=== PATIENT | female | born 1960 | race Caucasian/White ===

== ENCOUNTER → 2016-12-23 | Outpatient (CLI) | payer OTHER ==
[~2016-12-23] MED LIST: [UNRECOGNIZED DRUG - CODE] TD; vagifem VG
== END | disposition home or self-care (01) ==
LOC: STAR 10:28
PROVIDERS: ATTEND Orthopaedic Surgery
DX: Z01.818 Encounter for other preprocedural examination (principal); R94.31 Abnormal electrocardiogram [ECG] [EKG]; M17.11 Unilateral primary osteoarthritis, right knee
CPT/HCPCS: 87081; 93005

== ENCOUNTER 2017-01-04 05:23 | Inpatient (IN) | payer OTHER ==
[~2017-01-04] VITALS: Ht 175.3 cm; Wt 107.4 kg
[2017-01-04] MEDS ORDERED: VANCOMYCIN PER PHARMACY MC STA (05:52)
[2017-01-04] MEDS ORDERED: VANCOMYCIN 1,900 MG in SODIUM CHLORIDE 0.9% 250 ML IV ONE (06:00)
[2017-01-04] MEDS ORDERED: LACTATED RINGERS 1,000 ML IV SCH (06:06)
[2017-01-04 06:09] VITALS: BP 129/92
[2017-01-04] MEDS ORDERED: BUPIVACAINE/PF 0.25% ONE (06:26)
[2017-01-04] MEDS ORDERED: SCOPOLAMINE PATCH, 1.5MG PATCH.TD72 TD ONE (06:30)
[2017-01-04] MEDS ORDERED: KETAMINE 10 MG/ML, 20ML ONE (06:31)
[2017-01-04] MEDS ORDERED: FENTANYL PF 250 MCG/5ML ONE (06:32)
[2017-01-04] MEDS ORDERED: MIDAZOLAM 1 MG/ML, 2ML ONE (06:32)
[2017-01-04] MEDS ORDERED: EPHEDRINE 50 MG/ML, 1ML ONE (06:59)
[2017-01-04] MEDS ORDERED: KETOROLAC 30 MG/1 ML ONE (06:59)
[2017-01-04] MEDS ORDERED: CEFAZOLIN 1,000 MG ONE (06:59)
[2017-01-04] MEDS ORDERED: ONDANSETRON 2MG/ML, 2ML ONE (06:59)
[2017-01-04] MEDS ORDERED: DEXAMETHASONE 4 MG/ML, 1ML ONE (06:59)
[2017-01-04] MEDS ORDERED: PROPOFOL 10 MG/ML, 20ML ONE (06:59)
[2017-01-04] MEDS ORDERED: HYDROmorphone 2 MG/ML, 1ML ONE (07:29)
[2017-01-04] MEDS ORDERED: MIDAZOLAM 1 MG/ML, 2ML IV PRN (08:00)
[2017-01-04] MEDS ORDERED: LORazepam 2 MG/ML, 1ML IVPush PRN (08:00)
[2017-01-04] MEDS ORDERED: OXYcodone 5 MG/5 ML ORAL.SOL UDC PO PRN (08:00)
[2017-01-04] MEDS ORDERED: ONDANSETRON 2MG/ML, 2ML IVPush PRN (08:00)
[2017-01-04] MEDS ORDERED: LABETALOL 5MG/ML, 20ML IV PRN (08:00)
[2017-01-04] MEDS ORDERED: PROMETHAZINE 25 MG/ML, 1ML IV PRN (08:00)
[2017-01-04] MEDS ORDERED: FENTANYL PF 100 MCG/2ML IV PRN (08:00)
[2017-01-04] MEDS ORDERED: ALBUTEROL/IPRATROPIUM 2.5MG/0.5MG, 3 ML NPPB PRN (08:00)
[2017-01-04] MEDS ORDERED: HYDROmorphone 1 MG/ML, 1ML IV PRN (08:00)
[2017-01-04] MEDS ORDERED: hydrALAzine 20 MG/ML, 1ML IV PRN (08:00)
[2017-01-04] MEDS ORDERED: MEPERIDINE/PF 25MG/0.5ML IVPush PRN (08:00)
[2017-01-04] MEDS ORDERED: MAGNESIUM HYDROXIDE 8%, 30ML UDC PO PRN (09:30)
[2017-01-04] MEDS ORDERED: ALUMINUM/MAG/SIMETHICONE 30 ML UDC PO PRN (09:30)
[2017-01-04] MEDS ORDERED: ONDANSETRON 4 MG TABLET PO PRN (09:30)
[2017-01-04] MEDS ORDERED: ACETAMINOPHEN 650 MG/20.3 ML UDC PO PRN (09:30)
[2017-01-04] MEDS ORDERED: SENNA/DOCUSATE TABLET PO PRN (09:30)
[2017-01-04] MEDS ORDERED: BISACODYL 10 MG SUPP PR PRN (09:30)
[2017-01-04] MEDS ORDERED: OXYcodone 5 MG/5 ML ORAL.SOL UDC ONE (09:39)
[2017-01-04] MEDS ORDERED: LORazepam 2 MG/ML, 1ML ONE (09:49)
[2017-01-04] MEDS: D5%-0.45NACL+KCL 20MEQ 1,000 ML IV SCH ×2 (12:32→21:00)
[2017-01-04 14:24] VITALS: BP 101/69
[2017-01-04] MEDS: OXYcodone IR 5MG TABLET PO PRN ×3 (15:06→23:26)
[2017-01-04] MEDS: CEFAZOLIN PMX 1GM/50ML 50 ML IVPB SCH ×2 (15:06→23:26)
[2017-01-04] MEDS: DOCUSATE 100 MG CAPSULE PO SCH (19:19)
[2017-01-04 19:32] VITALS: BP 98/61
[2017-01-04 23:28] VITALS: BP 103/65
[2017-01-05] MEDS: OXYcodone IR 5MG TABLET PO PRN ×5 (03:37→20:06)
[2017-01-05 03:40] VITALS: BP 106/70
[2017-01-05] MEDS: D5%-0.45NACL+KCL 20MEQ 1,000 ML IV SCH ×3 (05:00→20:34)
[2017-01-05] MEDS ORDERED: ASPIRIN 325 MG TABLET EC PO ONE (06:00)
[2017-01-05] MEDS: HYDROmorphone 1 MG/ML, 1ML IV PRN ×3 (06:55→14:18)
[2017-01-05 07:39] VITALS: BP 105/69
[2017-01-05] MEDS: MULTIVITAMINS/MINERALS TABLET PO SCH (08:09)
[2017-01-05] MEDS: DOCUSATE 100 MG CAPSULE PO SCH ×2 (08:09→20:06)
[2017-01-05 12:55] VITALS: BP 110/63
[2017-01-05] MEDS ORDERED: KETOROLAC 30 MG/1 ML IVPush PRN (15:00)
[2017-01-05] MEDS ORDERED: KETOROLAC 30 MG/1 ML ONE (15:21)
[2017-01-05] MEDS: KETOROLAC 30 MG/1 ML IVPush SCH ×2 (15:24→21:46)
[2017-01-05] MEDS: OxyconTIN ER 10 MG TAB.ER PO SCH (18:26)
[2017-01-05] MEDS: ASPIRIN 325 MG TABLET EC PO SCH (18:26)
[2017-01-05 18:57] VITALS: BP 119/70
[2017-01-06] MEDS: OXYcodone IR 5MG TABLET PO PRN ×5 (00:55→13:58)
[2017-01-06 01:22] VITALS: BP 117/69
[2017-01-06] MEDS: KETOROLAC 30 MG/1 ML IVPush SCH (04:10)
[2017-01-06] MEDS: D5%-0.45NACL+KCL 20MEQ 1,000 ML IV SCH ×2 (05:00→12:36)
[2017-01-06] MEDS: ASPIRIN 325 MG TABLET EC PO SCH (06:00)
[2017-01-06] MEDS: OxyconTIN ER 10 MG TAB.ER PO SCH (06:00)
[2017-01-06 06:54] VITALS: BP 117/72
[2017-01-06] MEDS: MULTIVITAMINS/MINERALS TABLET PO SCH (07:54)
[2017-01-06] MEDS: DOCUSATE 100 MG CAPSULE PO SCH (07:54)
[2017-01-06 12:41] VITALS: BP 104/66
[2017-01-06] MEDS ORDERED: ASPI-650 PO (13:34)
[2017-01-06] MEDS ORDERED: DOCU100C8 PO (13:35)
[2017-01-06] MEDS ORDERED: ACET-76 PO (13:37)
[2017-01-06] MEDS ORDERED: OXYC10TA32 PO (14:25)
[2017-01-06] MEDS ORDERED: OXYC10TA6 PO (14:26)
[2017-01-06] MEDS ORDERED: NAPR500T PO (14:27)
[2017-01-06] MEDS ORDERED: ACET325T14 PO (14:28)
== END 2017-01-06 14:45 | disposition home or self-care (01) | DRG 470 ==
LOC: ORIP 05:23 → 4NOR 10:37 → DCLOUNGE 01-06 14:07
PROVIDERS: ADMIT Orthopaedic Surgery; ATTEND Orthopaedic Surgery
PROC: 0SRC0J9 Replacement of Right Knee Joint with Synthetic Substitute, Cemented, Open Approach (ICD-10-PCS; principal; 2017-01-04 07:00)
DX: M17.11 Unilateral primary osteoarthritis, right knee (principal); M21.061 Valgus deformity, not elsewhere classified, right knee
CPT/HCPCS: J0171; J0690; J1100; J1170; J1885; J2250; J2405; J2704; J2795; J3010; J3370; J3490; J2060; J3480; J7050; J7120

== ENCOUNTER 2017-04-14 05:50 | Inpatient (IN) | payer OTHER ==
[2017-04-04 13:16] VITALS: BP 145/104
[~2017-04-14] VITALS: Ht 175.3 cm; Wt 107.0 kg
[~2017-04-14 05:50] MED LIST changes: +ACET-76 PO; +ACET325T14 PO; +ASPI-650 PO; +DOCU100C33 PO; +ESTR0.25 TP; +ESTR10TA PO; +NAPR500T PO; +OXYC10TA47 PO; +OXYC10TA6 PO
[2017-04-14] MEDS ORDERED: LACTATED RINGERS 1,000 ML IV SCH (06:07)
[2017-04-14] MEDS ORDERED: VANCOMYCIN PER PHARMACY MC STA (06:12)
[2017-04-14] MEDS ORDERED: SCOPOLAMINE 1MG PATCH TD ONE (06:15)
[2017-04-14] MEDS ORDERED: GABAPENTIN 300 MG CAPSULE PO STA (06:30)
[2017-04-14] MEDS ORDERED: PHARMACOKINETIC CONSULTATION MC ONE (06:30)
[2017-04-14] MEDS ORDERED: ONDANSETRON 2MG/ML, 2ML IVPush PRN (07:00)
[2017-04-14] MEDS ORDERED: MEPERIDINE/PF 25MG/0.5ML IVPush PRN (07:00)
[2017-04-14] MEDS ORDERED: MIDAZOLAM 1 MG/ML, 2ML IV PRN (07:00)
[2017-04-14] MEDS ORDERED: FENTANYL PF 100 MCG/2ML IV PRN (07:00)
[2017-04-14] MEDS ORDERED: HYDROmorphone 1 MG/ML, 1ML IV PRN (07:00)
[2017-04-14] MEDS ORDERED: hydrALAzine 20 MG/ML, 1ML IV PRN (07:00)
[2017-04-14] MEDS ORDERED: ACETAMINOPHEN 325 MG TABLET PO PRN (07:00)
[2017-04-14] MEDS ORDERED: ALBUTEROL SULFATE 2.5 MG/3 ML NPPB PRN (07:00)
[2017-04-14] MEDS ORDERED: VANCOMYCIN 2,000 MG in SODIUM CHLORIDE 0.9% 500 ML IV ONE (07:00)
[2017-04-14] MEDS ORDERED: PROMETHAZINE 25 MG/ML, 1ML IV PRN (07:00)
[2017-04-14] MEDS ORDERED: LABETALOL 5MG/ML, 20ML IV PRN (07:00)
[2017-04-14] MEDS ORDERED: OXYcodone 5 MG/5 ML ORAL.SOL UDC PO PRN (07:00)
[2017-04-14] MEDS ORDERED: KETOROLAC 60 MG/2 ML ONE (07:06)
[2017-04-14] MEDS ORDERED: morphine SULFATE/PF 1 MG/ML, 10ML ONE (07:07)
[2017-04-14] MEDS ORDERED: ROPIvacaine/PF 0.2%, 20 ML ONE ×2 (07:07→09:05)
[2017-04-14] MEDS ORDERED: SODIUM CHLORIDE 0.9% 0 ML ONE (07:07)
[2017-04-14] MEDS ORDERED: EPINEPHRINE 1 MG/ML, 1ML ONE (07:11)
[2017-05-05] MEDS ORDERED: VANCOMYCIN PER PHARMACY MC ONE (13:03)
[2017-05-05] MEDS ORDERED: VANCOMYCIN 2,000 MG in SODIUM CHLORIDE 0.9% 500 ML IV ONE (13:30)
[2017-05-05] MEDS ORDERED: TRANEXAMIC ACID 100 MG/ML, 10ML ONE ×2 (13:31→15:15)
[2017-05-05] MEDS ORDERED: KETOROLAC 60 MG/2 ML ONE (13:31)
[2017-05-05] MEDS ORDERED: SODIUM CHLORIDE 0.9% 100 ML ONE (13:32)
[2017-05-05] MEDS ORDERED: EPINEPHRINE 1 MG/ML, 1ML ONE (13:32)
[2017-05-05] MEDS ORDERED: ROPIvacaine/PF 0.2%, 20 ML ONE (13:32)
[2017-05-05] MEDS ORDERED: MIDAZOLAM 1 MG/ML, 2ML ONE (13:47)
[2017-05-05] MEDS ORDERED: DEXAMETHASONE 4 MG/ML, 1ML ONE (13:47)
[2017-05-05] MEDS ORDERED: FENTANYL PF 250 MCG/5ML ONE (13:47)
[2017-05-05] MEDS ORDERED: HYDROmorphone 1 MG/ML, 1ML ONE ×2 (13:47→16:40)
[2017-05-05] MEDS ORDERED: CEFAZOLIN 1,000 MG ONE (13:47)
[2017-05-05] MEDS ORDERED: ONDANSETRON 2MG/ML, 2ML ONE (13:47)
[2017-05-05] MEDS ORDERED: PROPOFOL 10 MG/ML, 20ML ONE (13:47)
[2017-05-05] MEDS ORDERED: GABAPENTIN 300 MG CAPSULE PO ONE (14:00)
[2017-05-05] MEDS ORDERED: LACTATED RINGERS 1,000 ML IV SCH ×2 (14:00)
[2017-05-05] MEDS ORDERED: VANCOMYCIN PER PHARMACY MC PRN (14:00)
[2017-05-05] MEDS ORDERED: ALBUTEROL SULFATE 2.5 MG/3 ML NPPB PRN (14:30)
[2017-05-05] MEDS ORDERED: MIDAZOLAM 1 MG/ML, 2ML IV PRN (14:30)
[2017-05-05] MEDS ORDERED: METOPROLOL 1 MG/ML, 5ML IV PRN (14:30)
[2017-05-05] MEDS ORDERED: EPHEDRINE 50 MG/ML, 1ML IVPush PRN (14:30)
[2017-05-05] MEDS ORDERED: PROMETHAZINE 25 MG/ML, 1ML IV PRN (14:30)
[2017-05-05] MEDS ORDERED: MEPERIDINE/PF 25MG/0.5ML IVPush PRN (14:30)
[2017-05-05] MEDS ORDERED: ACETAMINOPHEN 325 MG TABLET PO PRN (14:30)
[2017-05-05] MEDS ORDERED: ONDANSETRON 2MG/ML, 2ML IVPush PRN (14:30)
[2017-05-05] MEDS ORDERED: OXYcodone 5 MG/5 ML ORAL.SOL UDC PO PRN (14:30)
[2017-05-05] MEDS ORDERED: LABETALOL 5MG/ML, 20ML IV PRN (14:30)
[2017-05-05] MEDS ORDERED: DIAZEPAM 5 MG/ML, 2ML IVPush PRN (14:30)
[2017-05-05] MEDS ORDERED: hydrALAzine 20 MG/ML, 1ML IV PRN (14:30)
[2017-05-05] MEDS ORDERED: OXYcodone 5 MG/5 ML ORAL.SOL UDC ONE (16:26)
[2017-05-05] MEDS ORDERED: ACETAMINOPHEN 650 MG/20.3 ML UDC ONE (16:26)
[2017-05-05] MEDS ORDERED: FENTANYL PF 100 MCG/2ML ONE (16:26)
[2017-05-05] MEDS ORDERED: BISACODYL 10 MG SUPP PR PRN (16:30)
[2017-05-05] MEDS ORDERED: ONDANSETRON 2MG/ML, 2ML IV PRN (16:30)
[2017-05-05] MEDS ORDERED: CEFAZOLIN PMX 2GM/50ML 50 ML IVPB SCH (16:30)
[2017-05-05] MEDS ORDERED: MAGNESIUM HYDROXIDE 8%, 30ML UDC PO PRN (16:30)
[2017-05-05] MEDS ORDERED: SENNA/DOCUSATE TABLET PO PRN (16:30)
[2017-05-05] MEDS: FENTANYL PF 100 MCG/2ML IV PRN ×2 (16:35→16:45)
[2017-05-05] MEDS: HYDROmorphone 1 MG/ML, 1ML IV PRN ×2 (16:41→16:58)
[2017-05-05 19:00] VITALS: BP 113/83
[2017-05-05] MEDS: D5%-0.45NACL+KCL 20MEQ 1,000 ML IV SCH (19:46)
[2017-05-05] MEDS: DOCUSATE 100 MG CAPSULE PO SCH (21:07)
[2017-05-05] MEDS: CEFAZOLIN PMX 2GM/50ML 50 ML IVPB SCH (22:13)
[2017-05-05 23:46] VITALS: BP 110/73
[2017-05-06] MEDS: OXYcodone IR 5MG TABLET PO PRN ×6 (01:22→21:30)
[2017-05-06 03:06] VITALS: BP 120/81
[2017-05-06] MEDS: D5%-0.45NACL+KCL 20MEQ 1,000 ML IV SCH ×3 (05:30→20:00)
[2017-05-06] MEDS: CEFAZOLIN PMX 2GM/50ML 50 ML IVPB SCH (05:30)
[2017-05-06 09:06] VITALS: BP 117/73
[2017-05-06] MEDS: DOCUSATE 100 MG CAPSULE PO SCH ×2 (09:41→20:49)
[2017-05-06] MEDS: MULTIVITAMINS/MINERALS TABLET PO SCH (09:41)
[2017-05-06] MEDS ORDERED: ACETAMINOPHEN 325 MG TABLET ONE ×4 (11:36→21:28)
[2017-05-06] MEDS: ACETAMINOPHEN 650 MG/20.3 ML UDC PO PRN ×3 (11:40→21:30)
[2017-05-06 13:27] VITALS: BP 113/73
[2017-05-06] MEDS: ASPIRIN 325 MG TABLET EC PO SCH (17:41)
[2017-05-06] MEDS: HYDROmorphone 1 MG/ML, 1ML IV PRN ×2 (18:23→22:12)
[2017-05-06 21:12] VITALS: BP 135/83
[2017-05-06] MEDS: KETOROLAC 30 MG/1 ML IVPush SCH (22:06)
[2017-05-07] MEDS: OXYcodone IR 5MG TABLET PO PRN ×5 (00:38→12:29)
[2017-05-07] MEDS: HYDROmorphone 1 MG/ML, 1ML IV PRN ×2 (02:10→13:23)
[2017-05-07 02:19] VITALS: BP 101/66
[2017-05-07] MEDS: KETOROLAC 30 MG/1 ML IVPush SCH ×2 (03:46→10:11)
[2017-05-07] MEDS: D5%-0.45NACL+KCL 20MEQ 1,000 ML IV SCH ×2 (04:00→11:12)
[2017-05-07] MEDS: ASPIRIN 325 MG TABLET EC PO SCH (05:53)
[2017-05-07 09:19] VITALS: BP 119/78
[2017-05-07] MEDS: DOCUSATE 100 MG CAPSULE PO SCH (09:22)
[2017-05-07] MEDS: MULTIVITAMINS/MINERALS TABLET PO SCH (09:22)
[2017-05-07] MEDS ORDERED: OXYC5TAB2 PO (12:42)
[2017-05-07] MEDS ORDERED: DOCU-131 PO (12:43)
[2017-05-07] MEDS ORDERED: ASPI325T17 PO (12:45)
[2017-05-07 13:28] VITALS: BP 106/71
== END 2017-05-07 13:30 | disposition home or self-care (01) | DRG 470 ==
LOC: ORIP 05:50 → UNDOADMIN 05:50 → UNDODISIN 09:00 → ORIP 05-05 11:41 → 4NOR 05-05 18:03
PROVIDERS: ADMIT Orthopaedic Surgery; ATTEND Orthopaedic Surgery
PROC: 0SRD0JZ Replacement of Left Knee Joint with Synthetic Substitute, Open Approach (ICD-10-PCS; principal; 2017-05-05 14:00)
DX: M17.12 Unilateral primary osteoarthritis, left knee (principal); Z96.652 Presence of left artificial knee joint
CPT/HCPCS: C1713; J0171; J0690; J1100; J1170; J1885; J2250; J2274; J2405; J2704; J2795; J3010; C1776; J3480; J7120

== ENCOUNTER → 2017-12-23 | Outpatient (CLI) | payer BC ==
[~2017-12-23] MED LIST changes: +ASPI325T17 PO; +DOCU-131 PO; +NAPR-856 PO; -NAPR500T PO; +OXYC5TAB2 PO
== END | disposition home or self-care (01) ==
LOC: CFH 12:02
PROVIDERS: ATTEND Student in an Organized Health Care Education/Training Program
DX: N63.20 Unspecified lump in the left breast, unspecified quadrant (principal); Z80.3 Family history of malignant neoplasm of breast
CPT/HCPCS: 76642; 77066